=== PATIENT | male | born 1980 | race Hispanic/Latino ===

== ENCOUNTER 2020-08-12 12:54 | Emergency (ER) | payer SELFPAY ==
[~2020-08-12] VITALS: Ht 165.1 cm; Wt 88.4 kg
[2020-08-12] MEDS ORDERED: vitamins (13:31)
--- NOTE | 2020-08-12 13:53 | REP ---
INDICATION: CHEST PAIN. COMPARISON: No comparison study. TECHNIQUE: Portable upright AP chest radiograph. FINDINGS: The lungs are well inflated and free of infiltrate. Pleural angles are sharp. Heart size is normal. Pulmonary vasculature is not increased. EKG electrodes are seen. IMPRESSION: No active disease. <Electronically signed by Willie Pickens > 08/12/20 [id number]
[2020-08-12 14:27] LABS: BASO # 0.1 10^3/uL (0.0-0.2); BASO % 1.4 % (0.0-1.0); EOS # 0.2 10^3/uL (0.0-0.5); EOS % 2.6 % (0.0-3.0); HEMATOCRIT 43.1 % (42.0-52.0); HEMOGLOBIN 15.2 g/dl (13.5-17.5); LYMPH # 2.1 10^3/uL (1.5-5.0); LYMPH % 37.5 % (24.0-44.0); MEAN CORPUSCULAR HEMOGLOBIN 32.3 pg (27.0-33.0); MEAN CORPUSCULAR HGB CONC 35.3 g/dl (32.0-36.5); MEAN CORPUSCULAR VOLUME 91.5 fl (80.0-96.0); MONO # 0.7 10^3/uL (0.0-0.8); MONO % 12.7 % (2.0-8.0); NEUTROPHILS # 2.6 10^3/uL (1.5-8.5); NEUTROPHILS % 45.4 % (36.0-66.0); PLATELET COUNT, AUTOMATED 190 10^3/uL (150-450); RED BLOOD COUNT 4.71 10^6/uL (4.30-6.10); WHITE BLOOD COUNT 5.7 10^3/uL (4.0-10.0)
[2020-08-12 14:57] LABS: BLOOD UREA NITROGEN 14 MG/DL (7-18); CALCIUM LEVEL 9.1 MG/DL (8.5-10.1); CARBON DIOXIDE LEVEL 26 MEQ/L (21-32); CHLORIDE LEVEL 108 MEQ/L (98-107); CREATININE FOR GFR 0.71 MG/DL (0.70-1.30); FREE T4 0.74 NG/DL (0.76-1.46); GLOMERULAR FILTRATION RATE > 60.0 (>60); GLUCOSE, FASTING 110 MG/DL (70-100); MAGNESIUM LEVEL 2.3 MG/DL (1.8-2.4); POTASSIUM SERUM 3.9 MEQ/L (3.5-5.1); SODIUM LEVEL 140 MEQ/L (136-145); THYROID STIMULATING HORMONE 0.752 uIU/ML (0.358-3.740)
[2020-08-12] MEDS ORDERED: ISOVUE-370 76% 100ML VIAL As Ordered ONE (15:32)
--- NOTE | 2020-08-12 17:01 | REP ---
INDICATION: CP. COMPARISON: None. TECHNIQUE: CT angiogram chest performed following the intravenous administration of 100 cc of Isovue 370. Sagittal and coronal reconstruction images are performed. FINDINGS: Lungs: Clear, no infiltrate or nodule. There is a calcified granuloma in the right middle lobe. Mediastinum: No adenopathy. Pulmonary arteries: No evidence of pulmonary embolism. [place]: No adenopathy. Axilla: No adenopathy. Pleura: No effusion. Heart: Not enlarged. Thoracic aorta: No aneurysm or dissection. Upper abdominal structures: There is a small hiatal hernia. There is diffuse fatty infiltration of the liver. Visualized osseous structures: Unremarkable. IMPRESSION: No CT evidence of pulmonary embolism. No aneurysm or dissection of thoracic aorta. No infiltrate seen. <Electronically signed by Casey Valencia > 08/12/20 [id number]
--- NOTE | 2020-08-12 17:20 | ECGEPIP ---
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
[2020-08-12 18:45] VITALS: BP 136/94
--- NOTE | 2020-08-13 04:20 | ECGEPIP ---
[facility] - ED Test Date: 2020-08-12 Pat Name: DIYA CUNNINGHAM Department: Room: - Gender: Male [employer]: GUERDA : 1980 Requested By: Nallely Quintanilla Order Number: [id number] Reading MD: Jones Miller Measurements Intervals [place] Rate: 63 P: 44 [place]: 130 QRS: -7 QRSD: 90 T: 9 QT: 374 QTc: 382 Interpretive Statements Normal sinus rhythm with sinus arrhythmia Minimal voltage criteria for LVH, may be normal variant ( R in aVL ) Similar to tracing done at 13:31 on same date Electronically Signed on 08-13-2020 4:20:09 EDT by Jones Miller
== END 2020-08-12 18:58 | disposition home or self-care (01) ==
LOC: M ED 12:54
DX: R00.2 Palpitations (principal); R07.9 Chest pain, unspecified; F17.210 Nicotine dependence, cigarettes, uncomplicated
CPT/HCPCS: 36415; 71045; 71275; 80048; 83735; 84439; 84443; 84484; 85025; 93005; 93041; 94760; 99285; Q9967